=== PATIENT | female | born 1945 | race Caucasian/White ===

== ENCOUNTER → 2016-07-19 | Outpatient (CLI) | payer MEDICARE, BC ==
[~2016-07-19] MED LIST: CITA20TA5 PO; GEMF600T3 PO; GLIM4TAB2 PO; HYDR-2161 PO; LEVO25TA4 PO; LISI-334 PO; METO25TA9 PO; ROPI0.252 PO; ZOLP10TA4 PO
--- NOTE | 2016-07-19 15:59 | KCIC ---
PROCEDURE Abdomen, two views. HISTORY Pain. FINDINGS Frontal upright and supine views of the abdomen are obtained. There is a large amount of formed stool throughout the colon. No abnormally dilated air-filled loop of small bowel seen. There is no free air. IMPRESSION Large amount of stool throughout the colon, suggesting constipation. Electronically signed by: Olivia Juares (Jul 19, 2016 15:58:10)
== END | disposition home or self-care (01) ==
LOC: KCIC 15:08
PROVIDERS: ATTEND Family Medicine
DX: R10.9 Unspecified abdominal pain (principal); G89.29 Other chronic pain
CPT/HCPCS: 74020

== ENCOUNTER → 2016-11-21 | Day surgery (SDC) | payer BC ==
[~2016-11-21] MED LIST changes: +ASCO100020 PO; +ASPI325T8 PO; +CHOL100013 PO; +FERR-26; +GABA300C8; +HYDR-2762; +INSU100I16; +IV RINGERS,LACTATED 1000ML 1,000 ML IV SCH; +LATA2.5D3; +LEVO125T5; +LIDOCAINE 2% PF Vial for OR 5 ML VIAL. ONE; +LOVA40TA2; +METO25TA4; +MIRT15TA3; +OMEP20CA9; +PROPOFOL 20 ML IV ONE
[2016-11-21 14:28] VITALS: BP 125/68
== END | disposition home or self-care (01) ==
LOC: ENDOS 12:53
PROVIDERS: ATTEND Internal Medicine Gastroenterology
DX: K29.50 Unspecified chronic gastritis without bleeding (principal); E11.39 Type 2 diabetes mellitus with other diabetic ophthalmic complication; H40.9 Unspecified glaucoma; M19.91 Primary osteoarthritis, unspecified site; F32.9 Major depressive disorder, single episode, unspecified; F17.200 Nicotine dependence, unspecified, uncomplicated; D64.9 Anemia, unspecified; Z90.710 Acquired absence of both cervix and uterus; Z72.0 Tobacco use; Z87.39 Personal history of other diseases of the musculoskeletal system and connective tissue; Z86.39 Personal history of other endocrine, nutritional and metabolic disease; Z88.2 Allergy status to sulfonamides
CPT/HCPCS: 43235; 82962; J2704; J2001

== ENCOUNTER → 2016-11-28 | Outpatient (CLI) | payer BC ==
[2016-11-21 14:28] VITALS: BP 125/68
[~2016-11-28] MED LIST changes: +IOHEXOL 240 MG/ML 50ML VIAL. ONE; +IOHEXOL 240 MG/ML 50ML VIAL. PO ONE; +IOHEXOL 300 MG/ML 75 ML VIAL IV ONE; +IOHEXOL 300 MG/ML 75 ML VIAL ONE; -IV RINGERS,LACTATED 1000ML 1,000 ML IV SCH; -LIDOCAINE 2% PF Vial for OR 5 ML VIAL. ONE; +METO-239 PO; -METO25TA9 PO; -PROPOFOL 20 ML IV ONE
[2016-11-28 15:57] LABS: GFR 61.4
[2016-11-28 16:01] LABS: CREATININE 0.9 mg/dL (0.6-1.0)
== END | disposition home or self-care (01) ==
LOC: CT 14:51
PROVIDERS: ATTEND Internal Medicine Gastroenterology
DX: R10.9 Unspecified abdominal pain (principal); R11.0 Nausea; E11.9 Type 2 diabetes mellitus without complications
CPT/HCPCS: 36415; 74177; 82565; Q9966; Q9967

== ENCOUNTER 2017-03-05 13:29 | Emergency (ER) | payer BC ==
[~2017-03-05] VITALS: Ht 170.2 cm; Wt 68.5 kg
[~2017-03-05 13:29] MED LIST changes: -IOHEXOL 240 MG/ML 50ML VIAL. ONE; -IOHEXOL 240 MG/ML 50ML VIAL. PO ONE; -IOHEXOL 300 MG/ML 75 ML VIAL IV ONE; -IOHEXOL 300 MG/ML 75 ML VIAL ONE
[2017-03-05] MEDS ORDERED: IV NORMAL SALINE 1000ML BAG 1,000 ML IV ONE (14:15)
[2017-03-05] MEDS ORDERED: ONDANSETRON PF 4 MG/2 ML VIAL. IV ONE (14:15)
--- NOTE | 2017-03-05 14:22 | PHYS DOC ---
Past Medical History Past Medical History: Anemia, Diabetes-Type II, GERD, High Cholesterol, Hypertension, Hypothyroid, Other Additional Past Medical Histor: NEUROPATHY Past Surgical History: Appendectomy, Hysterectomy, Other Additional Past Surgical Histo: UMBILICAL HERNIA, NECK, L FOOT, R CATARACT, BLADDER SLING Additional Information: 2 PPD Alcohol Use: None Drug Use: None Adult General Chief Complaint Chief Complaint: NAUSEA/VOMITING/DIARRHA HPI HPI Patient is a 71 year old female who presents with one-day history of nausea vomiting 2 no diarrhea with some mild abdominal discomfort; similar to previous "abdominal infection" but cannot specify; denies history of diverticulitis. History of appendectomy hysterectomy umbilical hernia bladder sling; no history of cholecystectomy. Denies any dysuria frequency flank pain or fever. Review of Systems Review of Systems Constitutional: Denies fever or chills [] Eyes: Denies change in visual acuity, redness, or eye pain [] HENT: Denies nasal congestion or sore throat [] Respiratory: Denies cough or shortness of breath [] Cardiovascular: No additional information not addressed in HPI [] GI: Denies abdominal pain, nausea, vomiting, bloody stools or diarrhea [] : Denies dysuria or hematuria [] Musculoskeletal: Denies back pain or joint pain [] Integument: Denies rash or skin lesions [] Neurologic: Denies headache, focal weakness or sensory changes [] Endocrine: Denies polyuria or polydipsia [] All other systems were reviewed and found to be within normal limits, except as documented in this note. Current Medications Current Medications Current Medications Medications (Trade) Dose Ordered Sig/Anita Start Time Stop Time Status Last Admin Dose Admin Info (Do NOT chart on this entry -- for MONITORING) 1 each PRN DAILY PRN 03/05/17 14:30 03/05/17 16:21 DC Iohexol (Omnipaque 300 Mg/ml) 75 ml 1X ONCE 03/05/17 14:30 03/05/17 14:31 DC 03/05/17 14:54 60 ML Ondansetron HCl (Zofran) 4 mg 1X ONCE 03/05/17 14:15 03/05/17 14:19 DC 03/05/17 14:30 4 MG Sodium Chloride 1,000 ml @ 1,000 mls/hr 1X ONCE 03/05/17 14:15 03/05/17 15:14 DC 03/05/17 14:30 1,000 MLS/HR Allergies Allergies Allergies Coded Allergies Type Severity Reaction Last Updated Verified Sulfa (Sulfonamide Antibiotics) Allergy Severe Swelling 11/21/16 Yes Physical Exam Physical Exam Constitutional: Well developed, well nourished, no acute distress, non-toxic appearance. [] HENT: Normocephalic, atraumatic, bilateral external ears normal, oropharynx moist, no oral exudates, nose normal. [] Eyes: PERRLA, EOMI, conjunctiva normal, no discharge. [] Neck: Normal range of motion, no tenderness, supple, no stridor. [] Cardiovascular:Heart rate regular rhythm, no murmur [] Lungs & Thorax: Bilateral breath sounds clear to auscultation [] Abdomen: Bowel sounds normal, soft, minimal if any tenderness, no masses, no pulsatile masses. [] Skin: Warm, dry, no erythema, no rash. [] Back: No tenderness, no CVA tenderness. [] Extremities: No tenderness, no cyanosis, no clubbing, ROM intact, no edema. [] Neurologic: Alert and oriented X 3, normal motor function, normal sensory function, no focal deficits noted. [] Psychologic: Affect normal, judgement normal, mood normal. [] Current Patient Data Vital Signs Vital Signs Date Time Temp Pulse Resp B/P (MAP) Pulse Ox O2 Delivery O2 Flow Rate FiO2 03/05/17 16:10 80 13 107/57 (74) 98 Room Air 03/05/17 13:50 98.2 98.2 Lab Values Laboratory Tests Test 03/05/17 13:50 03/05/17 15:10 White Blood Count 12.4 x10^3/uL (4.0-11.0) H Red Blood Count 4.51 x10^6/uL (3.50-5.40) Hemoglobin 13.2 g/dL (12.0-15.5) Hematocrit 40.0 % (36.0-47.0) Mean Corpuscular Volume 89 fL (79-100) Mean Corpuscular Hemoglobin 29 pg (25-35) Mean Corpuscular Hemoglobin Concent 33 g/dL (31-37) Red Cell Distribution Width 14.3 % (11.5-14.5) Platelet Count 369 x10^3/uL (140-400) Neutrophils (%) (Auto) 70 % (31-73) Lymphocytes (%) (Auto) 22 % (24-48) L Monocytes (%) (Auto) 6 % (0-9) Eosinophils (%) (Auto) 2 % (0-3) Basophils (%) (Auto) 1 % (0-3) Neutrophils # (Auto) 8.7 x10^3uL (1.8-7.7) H Lymphocytes # (Auto) 2.7 x10^3/uL (1.0-4.8) Monocytes # (Auto) 0.7 x10^3/uL (0.0-1.1) Eosinophils # (Auto) 0.2 x10^3/uL (0.0-0.7) Basophils # (Auto) 0.1 x10^3/uL (0.0-0.2) Sodium Level 133 mmol/L (136-145) L Potassium Level 4.5 mmol/L (3.5-5.1) Chloride Level 95 mmol/L (98-107) L Carbon Dioxide Level 27 mmol/L (21-32) Anion Gap 11 (6-14) Blood Urea Nitrogen 22 mg/dL (7-20) H Creatinine 1.1 mg/dL (0.6-1.0) H Estimated GFR (Cockcroft-Gault) 48.7 BUN/Creatinine Ratio 20 (6-20) Glucose Level 261 mg/dL (70-99) H Calcium Level 9.6 mg/dL (8.5-10.1) Total Bilirubin 0.3 mg/dL (0.2-1.0) Aspartate Amino Transferase (AST) 26 U/L (15-37) Alanine Aminotransferase (ALT) 29 U/L (14-59) Alkaline Phosphatase 75 U/L (46-116) Total Protein 8.8 g/dL (6.4-8.2) H Albumin 4.1 g/dL (3.4-5.0) Albumin/Globulin Ratio 0.9 (1.0-1.7) L Lipase 174 U/L (73-393) Urine Collection Type Unknown Urine Color Yellow Urine Clarity Clear Urine pH 5.5 Urine Specific [place] 1.020 Urine Protein Negative mg/dL (NEG-TRACE) Urine Glucose (UA) Negative mg/dL (NEG) Urine Ketones (Stick) Negative mg/dL (NEG) Urine Blood Negative (NEG) Urine Nitrite Negative (NEG) Urine Bilirubin Negative (NEG) Urine Urobilinogen Dipstick 0.2 mg/dL (0.2 mg/dL) Urine Leukocyte Esterase Moderate (NEG) Urine RBC 6-10 /HPF (0-2) Urine WBC 11-20 /HPF (0-4) Urine Squamous Epithelial Cells Few /LPF Urine Bacteria Few /HPF (0-FEW) Laboratory Tests 03/05/17 13:50 Laboratory Tests 03/05/17 13:50 EKG EKG [] Radiology/Procedures Radiology/Procedures CT scan abdomen and pelvis[] negative for acute abdomen mildly per radiology report Course & Med Decision Making Course & Med Decision Making Pertinent Labs and Imaging studies reviewed. (See chart for details) []Labs unremarkable reexamination patient feels improved wants to go home plan to prescribe Zofran and Prilosec and needs close follow-up with her PCP. Dragon Disclaimer Dragon Disclaimer This electronic medical record was generated, in whole or in part, using a voice recognition dictation system. Departure Departure Impression: Primary Impression: Acute abdominal pain Additional Impression: Nausea vomiting and diarrhea Disposition: HOME, SELF-CARE Condition: STABLE Referrals: Santiago AVENDAÑO MD (PCP) Patient Instructions: Abdominal Pain, [id number] Scripts Ondansetron (ZOFRAN ODT) 4 Mg Tab.rapdis 4 MG PO BID Y for NAUSEA/VOMITING, #8 TAB Prov: PATRICIA GREGORY MD 03/05/17 Omeprazole Magnesium (PRILOSEC OTC) 20 Mg Tablet.dr 1 TAB PO DAILY, #30 TAB 0 Refills Prov: PATRICIA GREGORY MD 03/05/17 Problem Qualifiers PATRICIA GREGORY MD Mar 05, 2017 14:22
[2017-03-05 14:25] LABS: BASO # 0.1 x10^3/uL (0.0-0.2); BASO % 1 % (0-3); EOS % 2 % (0-3); HEMOGLOBIN 13.2 g/dL (12.0-15.5); LYMPH # 2.7 x10^3/uL (1.0-4.8); LYMPH % 22 % (24-48); MEAN CORPUSCULAR HEMOGLOBIN 29 pg (25-35); MEAN CORPUSCULAR HGB CONC 33 g/dL (31-37); MEAN CORPUSCULAR VOLUME 89 fL (79-100); MONO % 6 % (0-9); NEUT % 70 % (31-73); PLATELET COUNT 369 x10^3/uL (140-400); RED BLOOD COUNT 4.51 x10^6/uL (3.50-5.40); RED CELL DISTRIBUTION WIDTH 14.3 % (11.5-14.5); WHITE BLOOD COUNT 12.4 x10^3/uL (4.0-11.0)
[2017-03-05] MEDS ORDERED: IOHEXOL 300 MG/ML 100ML VIAL. IV ONE (14:30)
[2017-03-05] MEDS ORDERED: CONTRAST GIVEN MC PRN (14:30)
[2017-03-05 14:41] LABS: CALCIUM 9.6 mg/dL (8.5-10.1); CREATININE 1.1 mg/dL (0.6-1.0); GFR 48.7; POTASSIUM 4.5 mmol/L (3.5-5.1)
[2017-03-05 14:48] LABS: ALBUMIN 4.1 g/dL (3.4-5.0); ALBUMIN/GLOBULIN RATIO 0.9 (1.0-1.7); TOTAL BILIRUBIN 0.3 mg/dL (0.2-1.0); TOTAL PROTEIN 8.8 g/dL (6.4-8.2)
--- NOTE | 2017-03-05 14:59 | EKG ---
[facility] [address] [place] [address] Test Date: 2017-03-05 Test Time: 14:32:10 Pat Name: LAURIE WALKER Department: Room: Gender: F [employer]: : [id number] Requested By: PATRICIA GREGORY Order Number: [id number] Reading MD: Measurements Intervals [place] Rate: 90 P: 85 NV: 214 QRS: 41 QRSD: 78 T: 50 QT: 424 QTc: 523 Interpretive Statements SINUS RHYTHM PROLONGED NV INTERVAL PROLONGED QT ABNORMAL ECG RI6.01 No previous ECG available for comparison
--- NOTE | 2017-03-05 15:20 | RAD ---
Indication: Vomiting for one day. Technique: Axial images and coronal and sagittal reformatted images are provided. 60 mL of intravenous Omnipaque 300 was administered without complication. Comparison is from November 28, 2016. One or more of the following individualized dose reduction techniques were utilized for this examination: 1. Automated exposure control 2. Adjustment of the mA and/or kV according to patient size 3. Use of iterative reconstruction technique Findings: There is minimal atelectasis or scarring in the lung bases. There is no pleural effusion. The heart is not enlarged. Coronary artery calcifications are noted. There is mild fatty infiltration of the liver. Gallbladder is distended. Spleen is not enlarged. Pancreas and adrenals are unremarkable. Kidneys are symmetrically perfused. Subcentimeter low-density lesion in the left kidney is too small to characterize, probably a small cyst, stable. There is atheromatous disease in the abdominal aorta without aneurysm. There is no dilated small bowel loop or air-fluid level. There is no definite mural thickening. Stool burden in the colon is moderate. There is no definite mural thickening in the colon. Lack of oral contrast limits evaluation of bowel. Appendix is not definitely visualized, there are no secondary findings of appendicitis. Bladder is unremarkable. Uterus is presumed absent. There is no adnexal mass. There are calcified phleboliths. There are degenerative changes in the spine. There is grade 1 anterolisthesis at L4-L5. Impression: 1. No acute abdominal findings.
[2017-03-05 15:25] LABS: BILIRUBIN,URINE NEGATIVE (NEG); GLUCOSE,URINE NEGATIVE (NEG); NITRITE,URINE NEGATIVE (NEG); PH,URINE 5.5; PROTEIN,URINE NEGATIVE (NEG-TRACE); UROBILINOGEN,URINE 0.2 mg/dL (0.2 mg/dL)
[2017-03-05 15:39] LABS: BACTERIA,URINE FEW /HPF (0-FEW); SQUAMOUS EPITHELIAL CELL,UR FEW /LPF
[2017-03-05] MEDS ORDERED: OMEP20TA63 PO (16:02)
[2017-03-05] MEDS ORDERED: ONDA4TAB10 PO (16:02)
[2017-03-05 16:10] VITALS: BP 107/57
== END 2017-03-05 16:21 | disposition home or self-care (01) ==
LOC: ER 13:29
DX: R11.2 Nausea with vomiting, unspecified (principal); R10.9 Unspecified abdominal pain; R19.7 Diarrhea, unspecified; E03.9 Hypothyroidism, unspecified; E11.40 Type 2 diabetes mellitus with diabetic neuropathy, unspecified; K21.9 Gastro-esophageal reflux disease without esophagitis; I10 Essential (primary) hypertension; E78.00 Pure hypercholesterolemia, unspecified; Z98.890 Other specified postprocedural states; Z90.49 Acquired absence of other specified parts of digestive tract; Z90.710 Acquired absence of both cervix and uterus; Z88.2 Allergy status to sulfonamides
CPT/HCPCS: 36415; 74177; 80053; 81001; 83690; 85025; 93005; 96361; 96374; 99285; J2405; J7030; Q9967

== ENCOUNTER → 2017-03-20 | Outpatient (CLI) | payer BC ==
[2017-03-20] MEDS: SINCALIDE 1.37 MCG in IV NORMAL SALINE 50ML 30 ML IV (11:52)
== END | disposition home or self-care (01) ==
LOC: NM 10:16
DX: R10.11 Right upper quadrant pain (principal); R11.2 Nausea with vomiting, unspecified
CPT/HCPCS: 78226; 96374; 96375; A9537; J2805

== ENCOUNTER 2017-07-28 15:11 | Observation (INO) | payer BC ==
[2017-07-28] MEDS: ONDANSETRON PF 4 MG/2 ML VIAL. IV (15:45)
[2017-07-28] MEDS: IV NORMAL SALINE 1000ML BAG 1,000 ML IV ×2 (15:45→18:30)
[2017-07-28] MEDS: DICYCLOMINE HCL 10 MG CAPSULE PO (15:45)
[2017-07-28] MEDS ORDERED: CONTRAST GIVEN MC (16:00)
[2017-07-28 16:03] LABS: ADD MAN DIFF? NO
[2017-07-28 16:09] LABS: BASO # 0.2 x10^3/uL (0.0-0.2); BASO % 1 % (0-3); EOS # 0.3 x10^3/uL (0.0-0.7); EOS % 2 % (0-3); HEMATOCRIT 32.2 % (36.0-47.0); HEMOGLOBIN 10.4 g/dL (12.0-15.5); LYMPH # 2.8 x10^3/uL (1.0-4.8); LYMPH % 21 % (24-48); MEAN CORPUSCULAR HEMOGLOBIN 26 pg (25-35); MEAN CORPUSCULAR HGB CONC 32 g/dL (31-37); MEAN CORPUSCULAR VOLUME 79 fL (79-100); MONO # 1.2 x10^3/uL (0.0-1.1); MONO % 9 % (0-9); NEUT # 8.8 x10^3uL (1.8-7.7); NEUT % 67 % (31-73); PLATELET COUNT 425 x10^3/uL (140-400); RED BLOOD COUNT 4.06 x10^6/uL (3.50-5.40); RED CELL DISTRIBUTION WIDTH 17.6 % (11.5-14.5); WHITE BLOOD COUNT 13.3 x10^3/uL (4.0-11.0)
[2017-07-28 16:18] LABS: ANION GAP 13 (6-14); BLOOD UREA NITROGEN 22 mg/dL (7-20); BUN/CREATININE RATIO 24 (6-20); CALCIUM 8.6 mg/dL (8.5-10.1); CARBON DIOXIDE 23 mmol/L (21-32); CHLORIDE 99 mmol/L (98-107); CREATININE 0.9 mg/dL (0.6-1.0); GFR 61.4; GLUCOSE 216 mg/dL (70-99); POTASSIUM 4.5 mmol/L (3.5-5.1); SODIUM 135 mmol/L (136-145)
[2017-07-28 16:19] LABS: ETHANOL < 10 mg/dL (0-10)
[2017-07-28 16:25] LABS: ALBUMIN 3.5 g/dL (3.4-5.0); ALBUMIN/GLOBULIN RATIO 0.7 (1.0-1.7); ALK PHOS 75 U/L (46-116); ALT (SGPT) 23 U/L (14-59); AST (SGOT) 28 U/L (15-37); LIPASE 196 U/L (73-393); TOTAL BILIRUBIN 0.5 mg/dL (0.2-1.0); TOTAL PROTEIN 8.3 g/dL (6.4-8.2)
[2017-07-28] MEDS: IOHEXOL 300 MG/ML 100ML VIAL. IV (16:27)
[2017-07-28 16:59] LABS: BILIRUBIN,URINE NEGATIVE (NEG); CLARITY,URINE CLEAR; GLUCOSE,URINE NEGATIVE (NEG); NITRITE,URINE NEGATIVE (NEG); PH,URINE 5.5; PROTEIN,URINE NEGATIVE (NEG-TRACE); UROBILINOGEN,URINE 0.2 mg/dL (0.2 mg/dL)
[2017-07-28 17:06] LABS: BARBITURATES NEG (NEG); BENZODIAZEPINES NEG (NEG); CANNABINOIDS NEG (NEG); COCAINE NEG (NEG); METHADONE NEG (NEG); OPIATES NEG (NEG); PHENCYCLIDINE NEG (NEG)
[2017-07-28 17:07] LABS: AMPHETAMINE/METHAMPHETAMINE NEG (NEG); ETHANOL, URINE NEG (NEG)
[2017-07-28 17:11] LABS: COLOR,URINE STRAW
[2017-07-28 17:12] LABS: BACTERIA,URINE 0 /HPF (0-FEW); RBC,URINE 0 /HPF (0-2); SQUAMOUS EPITHELIAL CELL,UR FEW /LPF; WBC,URINE 0 /HPF (0-4)
[2017-07-28] MEDS ORDERED: ONDANSETRON PF 4 MG/2 ML VIAL. IV (17:30)
[2017-07-28] MEDS ORDERED: ACETAMINOPHEN 325 MG TABLET. PO (17:30)
[2017-07-28 20:41] LABS: POC GLUCOSE 80 mg/dL (70-99)
[2017-07-28] MEDS: NICOTINE 21MG PATCH. TD (21:43)
[2017-07-28] MEDS: GABAPENTIN 300 MG CAPSULE. PO (22:20)
[2017-07-28] MEDS: CIPROFLOXACIN 400MG PREMIX 200 ML IV (23:47)
[2017-07-28] MEDS: fentaNYL PF VIAL 100 MCG/2 ML VIAL IV (23:56)
[2017-07-29] MEDS: fentaNYL PF VIAL 100 MCG/2 ML VIAL IV (02:57)
[2017-07-29 04:51] LABS: ADD MAN DIFF? NO
[2017-07-29 04:57] LABS: BASO # 0.1 x10^3/uL (0.0-0.2); BASO % 1 % (0-3); EOS # 0.2 x10^3/uL (0.0-0.7); EOS % 2 % (0-3); HEMATOCRIT 26.7 % (36.0-47.0); LYMPH # 2.6 x10^3/uL (1.0-4.8); LYMPH % 24 % (24-48); MEAN CORPUSCULAR HEMOGLOBIN 27 pg (25-35); MEAN CORPUSCULAR HGB CONC 34 g/dL (31-37); MEAN CORPUSCULAR VOLUME 79 fL (79-100); MONO # 1.2 x10^3/uL (0.0-1.1); MONO % 11 % (0-9); NEUT # 6.6 x10^3uL (1.8-7.7); NEUT % 62 % (31-73); PLATELET COUNT 326 x10^3/uL (140-400); RED BLOOD COUNT 3.38 x10^6/uL (3.50-5.40); RED CELL DISTRIBUTION WIDTH 17.1 % (11.5-14.5); WHITE BLOOD COUNT 10.7 x10^3/uL (4.0-11.0)
[2017-07-29 05:42] LABS: ALBUMIN 3.1 g/dL (3.4-5.0); ALBUMIN/GLOBULIN RATIO 0.8 (1.0-1.7); ALK PHOS 65 U/L (46-116); ALT (SGPT) 21 U/L (14-59); ANION GAP 8 (6-14); AST (SGOT) 19 U/L (15-37); BLOOD UREA NITROGEN 19 mg/dL (7-20); BUN/CREATININE RATIO 24 (6-20); CARBON DIOXIDE 27 mmol/L (21-32); CHLORIDE 104 mmol/L (98-107); CREATININE 0.8 mg/dL (0.6-1.0); GFR 70.3; GLUCOSE 114 mg/dL (70-99); POTASSIUM 3.7 mmol/L (3.5-5.1); SODIUM 139 mmol/L (136-145); TOTAL BILIRUBIN 0.2 mg/dL (0.2-1.0)
[2017-07-29] MEDS: INSULIN LISPRO 300 UNITS/3 ML INSULN.PEN. SQ ×3 (08:00→17:23)
[2017-07-29 08:06] LABS: POC GLUCOSE 88 mg/dL (70-99)
[2017-07-29] MEDS ORDERED: NICOTINE 21MG PATCH. TD (09:00)
[2017-07-29] MEDS: LISINOPRIL 20 MG TABLET PO (09:23)
[2017-07-29] MEDS: METOPROLOL TART IMMED RELEASE 25 MG TABLET. PO (09:23)
[2017-07-29] MEDS: LEVOTHYROXINE 137 MCG TABLET PO (09:23)
[2017-07-29] MEDS: PANTOPRAZOLE 40 MG TABLET.DR. PO (09:23)
[2017-07-29] MEDS: NICOTINE 21MG PATCH. TD (09:23)
[2017-07-29] MEDS: CIPROFLOXACIN 400MG PREMIX 200 ML IV ×2 (09:24→21:17)
[2017-07-29] MEDS: GEMFIBROZIL 600 MG TABLET. PO ×2 (09:24→21:17)
[2017-07-29] MEDS: GABAPENTIN 300 MG CAPSULE. PO ×3 (09:24→21:17)
[2017-07-29 09:28] LABS: % SAT IRON 14 % (15-34); IRON,SERUM 54 ug/dL (50-170)
[2017-07-29] MEDS: HYDROcodone/APAP 7.5/325MG 1 TAB TABLET PO ×3 (09:28→23:50)
[2017-07-29 09:47] LABS: RETIC COUNT 1.3 % (0.5-2.5)
[2017-07-29 10:10] LABS: FOLATE 5.87 ng/ml (3.2-20.0)
[2017-07-29 10:10] LABS: VITAMIN-B12 348 pg/mL (247-911)
[2017-07-29 11:39] LABS: POC GLUCOSE 161 mg/dL (70-99)
[2017-07-29 16:33] LABS: POC GLUCOSE 161 mg/dL (70-99)
[2017-07-29] MEDS: INSULN ASP PRT/INSULIN ASPART 300 UNITS/3 ML INSULN.PEN. SQ (17:22)
[2017-07-29] MEDS ORDERED: INSULN ASP PRT SQ (18:00)
[2017-07-29] MEDS ORDERED: [UNRECOGNIZED DRUG - OTHER] SQ (18:00)
[2017-07-29] MEDS ORDERED: INSULIN ASPART SQ (18:00)
[2017-07-29 18:43] LABS: POC GLUCOSE 37 mg/dL (70-99)
[2017-07-29] MEDS: DEXTROSE 50% 25 GM / 50ML DISP.SYRIN. IV (18:45)
[2017-07-29 20:04] LABS: POC GLUCOSE 162 mg/dL (70-99)
[2017-07-29 20:52] LABS: POC GLUCOSE 111 mg/dL (70-99)
[2017-07-29] MEDS: ASPIRIN 325 MG TABLET PO (21:17)
[2017-07-29] MEDS: rOPINIRole 0.25 MG TABLET. PO (21:17)
[2017-07-29] MEDS: MIRTAZAPINE 15 MG TABLET PO (21:17)
[2017-07-29] MEDS: LACTOBACILLUS RHAMNOSUS GG 1 CAPSULE. PO (21:17)
[2017-07-29] MEDS: LATANOPROST 0.005% OPHTH SOLUTION 2.5ML BOTTLE. OU (23:03)
[2017-07-30] MEDS: LEVOTHYROXINE 137 MCG TABLET PO (05:11)
[2017-07-30 06:39] LABS: POC GLUCOSE 42 mg/dL (70-99)
[2017-07-30] MEDS: DEXTROSE 50% 25 GM / 50ML DISP.SYRIN. IV (06:41)
[2017-07-30 07:16] LABS: POC GLUCOSE 150 mg/dL (70-99)
[2017-07-30] MEDS: INSULIN LISPRO 300 UNITS/3 ML INSULN.PEN. SQ (07:34)
[2017-07-30 08:02] LABS: POC GLUCOSE 140 mg/dL (70-99)
[2017-07-30] MEDS: GEMFIBROZIL 600 MG TABLET. PO (08:44)
[2017-07-30] MEDS: HYDROcodone/APAP 7.5/325MG 1 TAB TABLET PO (08:44)
[2017-07-30] MEDS: GABAPENTIN 300 MG CAPSULE. PO (08:44)
[2017-07-30] MEDS: LACTOBACILLUS RHAMNOSUS GG 1 CAPSULE. PO (08:44)
[2017-07-30] MEDS: METOPROLOL TART IMMED RELEASE 25 MG TABLET. PO (08:45)
[2017-07-30] MEDS: PANTOPRAZOLE 40 MG TABLET.DR. PO (08:45)
[2017-07-30] MEDS: CIPROFLOXACIN 400MG PREMIX 200 ML IV (08:45)
[2017-07-30] MEDS: NICOTINE 21MG PATCH. TD (08:45)
[2017-07-30] MEDS: LISINOPRIL 20 MG TABLET PO (08:45)
== END 2017-07-30 10:44 | disposition home or self-care (01) ==
LOC: 5 NORTH 18:50 → ER 15:11 → 5 NORTH 18:01
DX: K52.9 Noninfective gastroenteritis and colitis, unspecified (principal); E03.9 Hypothyroidism, unspecified; D64.9 Anemia, unspecified; F32.9 Major depressive disorder, single episode, unspecified; G89.29 Other chronic pain; M54.9 Dorsalgia, unspecified; E11.42 Type 2 diabetes mellitus with diabetic polyneuropathy; I10 Essential (primary) hypertension; E78.00 Pure hypercholesterolemia, unspecified; E78.5 Hyperlipidemia, unspecified; I25.10 Atherosclerotic heart disease of native coronary artery without angina pectoris; Z79.4 Long term (current) use of insulin; Z79.82 Long term (current) use of aspirin; Z90.49 Acquired absence of other specified parts of digestive tract; Z95.5 Presence of coronary angioplasty implant and graft; Z88.2 Allergy status to sulfonamides
CPT/HCPCS: 36415; 74177; 80053; 80307; 81001; 82607; 82746; 82962; 83540; 83550; 83690; 85025; 85045; 96361; 96365; 96366; 96367; 96372; 96374; 96375; 96376; 99285-25; G0378; G0379; G0480; J0744; J1815; J2405; J3010; J3490; J7030; J7042; Q9967

== ENCOUNTER → 2017-08-22 | Day surgery (SDC) | payer BC ==
[~2017-08-22] MED LIST changes: -ASCO100020 PO; -ASPI325T8 PO; -CHOL100013 PO; -CITA20TA5 PO; -FERR-26; -GABA300C8; -GEMF600T3 PO; -GLIM4TAB2 PO; -HYDR-2161 PO; -HYDR-2762; -INSU100I16; -LATA2.5D3; -LEVO125T5; -LEVO25TA4 PO; +LIDOCAINE 1% PF 2 ML VIAL. ID; +LIDOCAINE 2% PF Vial for OR 5 ML VIAL.; -LISI-334 PO; -LOVA40TA2; -METO-239 PO; -METO25TA4; +MIDAZOLAM HCL/PF 2 MG/2 ML VIAL. IV; -MIRT15TA3; -OMEP20CA9; +PROPOFOL 40 ML IV; -ROPI0.252 PO; -ZOLP10TA4 PO; +fentaNYL PF VIAL 100 MCG/2 ML VIAL IV
[2017-08-22] MEDS: IV RINGERS,LACTATED 1000ML 1,000 ML IV (08:27)
[2017-08-22 08:33] LABS: POC GLUCOSE 140 mg/dL (70-99)
== END | disposition home or self-care (01) ==
LOC: ENDOS 07:44
DX: K62.1 Rectal polyp (principal); K64.0 First degree hemorrhoids; I10 Essential (primary) hypertension; I25.10 Atherosclerotic heart disease of native coronary artery without angina pectoris; G47.33 Obstructive sleep apnea (adult) (pediatric); K21.9 Gastro-esophageal reflux disease without esophagitis; F32.9 Major depressive disorder, single episode, unspecified; E11.39 Type 2 diabetes mellitus with other diabetic ophthalmic complication; H40.9 Unspecified glaucoma; E78.00 Pure hypercholesterolemia, unspecified; M19.90 Unspecified osteoarthritis, unspecified site; M81.0 Age-related osteoporosis without current pathological fracture; D64.9 Anemia, unspecified; Z95.5 Presence of coronary angioplasty implant and graft; E89.0 Postprocedural hypothyroidism; Z90.49 Acquired absence of other specified parts of digestive tract; Z98.890 Other specified postprocedural states; Z90.710 Acquired absence of both cervix and uterus; F17.210 Nicotine dependence, cigarettes, uncomplicated; Z88.2 Allergy status to sulfonamides; Z79.899 Other long term (current) drug therapy; Z79.84 Long term (current) use of oral hypoglycemic drugs
CPT/HCPCS: 45380; 45385; 82962; 88305; J2704

== ENCOUNTER 2017-08-30 23:43 | Emergency (ER) | payer BC ==
[2017-08-31 00:51] LABS: ADD MAN DIFF? NO
[2017-08-31 01:04] LABS: ANION GAP 11 (6-14); BLOOD UREA NITROGEN 12 mg/dL (7-20); CALCIUM 8.1 mg/dL (8.5-10.1); CARBON DIOXIDE 26 mmol/L (21-32); CHLORIDE 101 mmol/L (98-107); CREATININE 0.8 mg/dL (0.6-1.0); GFR 70.3; GLUCOSE 184 mg/dL (70-99); POTASSIUM 4.3 mmol/L (3.5-5.1); SODIUM 138 mmol/L (136-145)
[2017-08-31 01:07] LABS: INR 0.9 (0.8-1.1); PROTHROMBIN TIME PATIENT 12.1 SEC (11.7-14.0)
[2017-08-31 01:11] LABS: BASO # 0.1 x10^3/uL (0.0-0.2); BASO % 1 % (0-3); EOS # 0.2 x10^3/uL (0.0-0.7); EOS % 2 % (0-3); HEMATOCRIT 30.5 % (36.0-47.0); HEMOGLOBIN 9.9 g/dL (12.0-15.5); LYMPH # 1.6 x10^3/uL (1.0-4.8); LYMPH % 14 % (24-48); MEAN CORPUSCULAR HEMOGLOBIN 25 pg (25-35); MEAN CORPUSCULAR HGB CONC 32 g/dL (31-37); MEAN CORPUSCULAR VOLUME 77 fL (79-100); MONO # 0.8 x10^3/uL (0.0-1.1); MONO % 7 % (0-9); NEUT # 8.5 x10^3uL (1.8-7.7); NEUT % 76 % (31-73); PLATELET COUNT 349 x10^3/uL (140-400); RED BLOOD COUNT 3.96 x10^6/uL (3.50-5.40); RED CELL DISTRIBUTION WIDTH 18.3 % (11.5-14.5); WHITE BLOOD COUNT 11.3 x10^3/uL (4.0-11.0)
[2017-08-31 01:17] LABS: TROPONINI < 0.017 ng/mL (0.000-0.055)
[2017-08-31 01:18] LABS: NT-PRO BNP 90 pg/mL (0-124)
[2017-08-31] MEDS: IV NORMAL SALINE 1000ML BAG 1,000 ML IV (01:26)
== END 2017-08-31 03:24 | disposition home or self-care (01) ==
LOC: ER 23:43
DX: R42 Dizziness and giddiness (principal); R61 Generalized hyperhidrosis; R63.0 Anorexia; K21.9 Gastro-esophageal reflux disease without esophagitis; E78.00 Pure hypercholesterolemia, unspecified; I10 Essential (primary) hypertension; E03.9 Hypothyroidism, unspecified; E11.40 Type 2 diabetes mellitus with diabetic neuropathy, unspecified; Z86.2 Personal history of diseases of the blood and blood-forming organs and certain disorders involving the immune mechanism; Z88.2 Allergy status to sulfonamides
CPT/HCPCS: 36415; 70450; 71045; 80048; 83880; 84484; 85025; 85610; 93005; 96360; 99285-25; J7030

== ENCOUNTER → 2019-08-20 | Outpatient (CLI) | payer BC, OTHER ==
[~2019-08-20] VITALS: Ht 167.6 cm; Wt 57.6 kg
[~2019-08-20] MED LIST changes: +ASCO100020 PO; +ASPI325T8 PO; +CALCIUM GLUCONATE 1,000 MG in IV NORMAL SALINE 100ML 100 ML IV ONE; +CHOL100013 PO; +CIPR500T94 PO; +CITA20TA6 PO; +FERR325T14; +GABA300C18; +GEMF600T8 PO; +GLIM4TAB8 PO; +HYDR-2161 PO; +HYDR-2765; +INSU100I16; +INSU100V12 SQ; +LATA2.5D3; +LEVO125T5; +LEVO137T3 PO; +LEVO25TA4 PO; -LIDOCAINE 1% PF 2 ML VIAL. ID; -LIDOCAINE 2% PF Vial for OR 5 ML VIAL.; +LISI-334 PO; +LOVA40TA2; +METO-239 PO; +METO25TA4; +METR-34 PO; -MIDAZOLAM HCL/PF 2 MG/2 ML VIAL. IV; +MIRT15TA3; +OMEP20CA16; +OMEP20TA63 PO; +ONDA4TAB10 PO; -PROPOFOL 40 ML IV; +ROPI0.254 PO; +ZOLP10TA4 PO; -fentaNYL PF VIAL 100 MCG/2 ML VIAL IV
[2019-08-20 15:27] VITALS: BP 112/63
== END | disposition home or self-care (01) ==
LOC: EDSTATUS 14:00 → OPS 14:10
PROVIDERS: ATTEND Family Medicine
DX: E83.51 Hypocalcemia (principal); R53.1 Weakness; M81.0 Age-related osteoporosis without current pathological fracture; I25.10 Atherosclerotic heart disease of native coronary artery without angina pectoris; J44.9 Chronic obstructive pulmonary disease, unspecified; K21.9 Gastro-esophageal reflux disease without esophagitis; E78.5 Hyperlipidemia, unspecified; E03.9 Hypothyroidism, unspecified; F32.9 Major depressive disorder, single episode, unspecified; G89.29 Other chronic pain; E78.00 Pure hypercholesterolemia, unspecified; E11.40 Type 2 diabetes mellitus with diabetic neuropathy, unspecified; M19.90 Unspecified osteoarthritis, unspecified site; Z79.82 Long term (current) use of aspirin; Z79.4 Long term (current) use of insulin; Z87.891 Personal history of nicotine dependence; Z95.5 Presence of coronary angioplasty implant and graft; Z90.710 Acquired absence of both cervix and uterus
CPT/HCPCS: 96365; J0610